=== PATIENT | female | born 1965 | race Caucasian/White ===

== ENCOUNTER 2020-07-23 13:55 | Emergency (ER) | payer SELFPAY ==
[~2020-07-23] VITALS: Ht 157.5 cm; Wt 54.5 kg
[2020-07-23 17:15] LABS: BASO % 0.2 % (0.0-2.0); EOS % 0.2 % (0-4.0); HEMATOCRIT 37.3 % (37.0-47.0); HEMOGLOBIN 12.9 g/dl (12.5-16.0); LYMPH # 1.1 (1.2-3.4); LYMPH % 23.7 % (20.0-51.0); MEAN CELL VOLUME 90 fl (80.0-100.0); MEAN CORPUSCULAR HEMOGLOBIN 31 pg (27.0-31.0); MEAN CORPUSCULAR HGB CONC 35 g/dl (33.0-37.0); MEAN PLATELET VOLUME 9.2 fl (7.4-10.4); MONO # 0.4 (0.1-0.6); MONO % 8.7 % (1.7-9.3); PLATELET COUNT 162 K/mm3 (130-400); RED BLOOD COUNT 4.14 M/mm3 (4.10-5.30); REDCELL DISTRIBUTION WIDTH-CV 15.4 % (11.5-14.5)
[2020-07-23 17:29] LABS: CALCIUM 9.7 mg/dL (8.4-10.2); CREATININE, serum 0.5 (0.52-1.25); POTASSIUM 3.5 mmol/L (3.4-5.0); TOTAL PROTEIN 8.5 gm/dL (6.4-8.2)
[2020-07-23 18:37] VITALS: TEMP 98.6
[2020-07-23] MEDS ORDERED: DOXYCYCLINE 10100 MG PO (18:38)
[2020-07-23] MEDS ORDERED: OMNICEF 300MG300 MG PO (18:39)
[2020-07-23 18:45] VITALS: BP 199/100; PULSE 100
== END 2020-07-23 18:50 | disposition home or self-care (01) ==
LOC: COL.ER 13:55
PROVIDERS: Emergency Medicine
DX: S41.151A Open bite of right upper arm, initial encounter (principal); R74.02 Elevation of levels of lactic acid dehydrogenase [LDH]; R21 Rash and other nonspecific skin eruption; R59.0 Localized enlarged lymph nodes; Z20.822 Contact with and (suspected) exposure to COVID-19; Z88.2 Allergy status to sulfonamides; Z88.8 Allergy status to other drugs, medicaments and biological substances; W54.0XXA Bitten by dog, initial encounter
CPT/HCPCS: J0696; J1100; J1885; J7030